=== PATIENT | male | born 1985 | race Caucasian/White ===

== ENCOUNTER → 2024-08-03 | Outpatient (REF) ==
[~2024-08-03] MED LIST: ADVI200T PO; ALBU17IN INH; ALBUTEROL INH; ALPR0.5T3 PO; ATARAX OR; BACT800T5 PO; BENZ1TAB5 PO; CLOZ100T45 OR; GEOD1CAP PO; GEOD60CA PO; HYDR-3713 PO; IBUP200C25 PO; KLON0.5T8 PO; LATU80TA PO; MILK120011 PO; NEUR600T PO; NICO14DI20 TD; OMEP40CA4 PO; PERCOCET PO; PRED20TA PO; PROP20TA5 PO; PROP20TA72 PO; RANI-397 PO; REME15TA; SERO50TA PO; SERT-141 PO; TYLE325T5 PO; ULTR50TA PO; VICO5TAB OR; WARF10TA15 PO; ZIPR80CA PO; ZOFR4TAB14 PO; ZOLO100T PO
== END ==
LOC: M PLAIMG 11:03
PROVIDERS: ATTEND Internal Medicine
DX: M54.9 Dorsalgia, unspecified (principal)

== ENCOUNTER → 2024-12-29 | Outpatient (REF) | LOC: M PLAIMG 12:38 | PROVIDERS: ATTEND Internal Medicine | DX: M25.511 Pain in right shoulder (principal) ==